=== PATIENT | male | born 1995 | race Caucasian/White ===

== ENCOUNTER 2016-10-30 22:32 | Emergency (ER) | payer OTHER ==
--- NOTE | ~2016-10-30 | ER ---
[facility] 21 [facility] [address] ROOM: [place] [address] LOCATION: [facility] ADMIT DATE: 10/30/2016 ER/Outpatient Report DISCHARGE DATE: 10/30/2016 FAMILY PHYSICIAN: Bentley Lisa MD ATTENDING PHYSICIAN: Jose Calloway Time of Arrival: 2234 hours. Time of Evaluation: 2234 hours. CHIEF COMPLAINT: Left foot pain. HISTORY OF PRESENT ILLNESS: The patient states he was working at [employer] when his left foot got run over by a forklift. Pain is on the lateral aspect of his foot. He states that his foot came out of his tennis shoe and his tennis shoe did get ripped during the process. He has a small laceration under the fold of the fifth toe. Incident occurred approximately 20 minutes prior to arrival. ALLERGIES: NO KNOWN ALLERGIES. CURRENT MEDICATIONS: No current medications. PAST MEDICAL HISTORY: Concussions. PAST SURGERIES: Finger surgeries, tonsils and adenoids. SOCIAL HISTORY: Denies use of tobacco or drugs. Drinks alcohol on a social basis. Presented to the ER accompanied by his parents. IMMUNIZATIONS: Current. REVIEW OF SYSTEMS: All negative other than those mentioned in the HPI. PHYSICAL EXAMINATION: VITAL SIGNS: He weighed 149.6 kg, blood pressure was 143/100, pulse of 110, respirations 18, temperature of 99.4, and O2 saturation was 99% on room air. GENERAL: He is awake, alert, and oriented x4. [facility] 21 Y [address] ROOM: [place] [address] LOCATION: [facility] ADMIT DATE: 10/30/2016 ER/Outpatient Report DISCHARGE DATE: 10/30/2016 FAMILY PHYSICIAN: Bentley Lisa MD ATTENDING PHYSICIAN: Jose Calloway SKIN: [place], warm, and dry. RESPIRATIONS: Even and nonlabored. Lung sounds are clear throughout. HEART: Regular rate and rhythm. EXTREMITIES: No swelling of the foot is noted yet. Does have strong pedal pulses. Good sensation to his toes. He is able to wiggle his toes. Does have a small laceration on the bottom of the fifth toe in the fold. LABORATORY DATA AND X-RAYS: X-ray was completed, reviewed with Dr. Calloway, no bony abnormality is seen. IMPRESSION: Contusion to the left foot. PLAN: Home. Rest. Elevate. Ice. Wear form fitting shoes. Tylenol or ibuprofen as needed. Crutches as needed. If symptoms persist or worsen, follow up with primary provider. Return to the ER in 2 to 3 days. Mother verbalized understanding. AMILCAR DAVILA APRN FOR [facility], DO [place]/mami /[id number] d: 11/01/162006 t: 11/15/16 0845, OUTPATIENT REPORT
== END 2016-10-30 23:14 | disposition disaster alternative care site (69) ==
LOC: GACC 22:32
DX: S90.32XA Contusion of left foot, initial encounter (principal); X58.XXXA Exposure to other specified factors, initial encounter